=== PATIENT | female | born 1990 | race Caucasian/White ===

== ENCOUNTER 2018-12-16 22:38 | Emergency (ER) | payer BC, MEDICAID ==
[2018-12-16] MEDS ORDERED: ACETAMINOPHEN 500 MG TAB PO ONE (22:53)
[2018-12-16] MEDS ORDERED: IBUPROFEN 800 MG TAB PO ONE (22:53)
[2018-12-16] MEDS ORDERED: NS 2,000 ML IV ONE (22:54)
--- NOTE | 2018-12-16 22:57 | EDPHY ---
H & P Stated Complaint: cough, bodyaches, SOB, abd pain, nausea, diarrhea for several days - Personal History LMP (Females 10-55): Extended Cycle BCP/Inj Current Tetanus/Diphtheria Vaccine: Yes Current Tetanus Diphtheria and Acellular Pertussis (TDAP): Yes - Medical/Surgical History Hx Asthma: No Hx Chronic Respiratory Disease: No Hx Diabetes: No Hx Cardiac Disease: No Hx Renal Disease: No Hx Cirrhosis: No Hx Alcoholism: No Hx HIV/AIDS: No Hx Splenectomy or Spleen Trauma: No Other PMH: bipolar, anxiety, anemia - Social History Smoking Status: Never smoked Time Seen by Provider: 12/16/18 22:48 HPI/ROS: CHIEF COMPLAINT: Flu-like symptoms, diarrhea HISTORY OF PRESENT ILLNESS: 28-year-old immunocompetent female with no seasonal influenza vaccination arrives via private vehicle complaining of 5 days loose stool and abdominal cramping with development today myalgia, fever, nonproductive cough, dyspnea. No nuchal rigidity. No urinary abnormality. No headache. No international travel. No rash. REVIEW OF SYSTEMS: 10 systems reviewed and negative with the exception of the elements mentioned in the history of present illness PAST MEDICAL & SURGICAL HISTORY: No influenza vaccination SOCIAL HISTORY: Nonsmoker PHYSICAL EXAM (Prior to examination, patient consented to physical exam, hands were washed and my usual and customary physical exam procedures followed) 1) GENERAL: Well-developed, well-nourished, alert and oriented. Appears to be in no acute distress. 2) HEAD: Normocephalic, atraumatic 3) HEENT: Pupils equal, round, reactive to light bilaterally. Sclera anicteric. Nasopharynx, oropharynx, clear, no lesions. Moist Mucous membranes. Ears bilaterally with normal tympanic membranes. No evidence of otitis media otitis externa 4) NECK: Full range of motion, no meningeal signs. 5) LUNGS: questionable bibasilar rales auscultated, no wheezes, no rhonchi, no retractions. 6) HEART: Regular rate and rhythm, no murmur, no heave, no gallop. 7) ABDOMEN: No guarding, no rebound, no focal tenderness, negative McBurney's, negative Vogel's, negative Rovsing's, negative peritoneal sign, I am unable to elicit any abdominal pain on exam 8) MUSCULOSKELETAL: Moving all extremities, no focal areas of tenderness, no obvious trauma. No peripheral edema or discoloration. 9) BACK: No CVA tenderness, no midline vertebral tenderness, no fluctuance, no step-off, no obvious trauma, no visual or palpable abnormality. 10) SKIN: No rash, no petechiae. 11) Psychiatric: Patient is oriented X 3, there is no agitation. DIFFERENTIAL DIAGNOSIS: In no particular order including but not limited to viral syndrome, influenza, acute appendicitis, acute cholecystitis (Regulo Salazar) Constitutional: Initial Vital Signs Temperature (C) 39.1 C H 12/16/18 22:42 Heart Rate 121 H 12/16/18 22:42 Respiratory Rate 20 12/16/18 22:42 Blood Pressure 115/78 12/16/18 22:42 O2 Sat (%) 98 12/16/18 22:42 O2 Delivery Mode Room Air Allergies/Adverse Reactions: amoxicillin Allergy (Verified 12/16/18 22:40) Sulfa (Sulfonamide Antibiotics) Allergy (Verified 12/16/18 22:40) Home Medications: Medication Instructions Recorded Camrese Lo Tablet 12/16/18 Gabapentin 12/16/18 [place] Carbonate 12/16/18 Propranolol Sr 12/16/18 Xanax 12/16/18 Medical Decision Making - Diagnostics Imaging Results: Imaging Impressions Chest X-Ray 12/16/18 22:54 Impression: Excellent inspiration. No pneumonia. Images reviewed myself (Regulo Salazar) ED Course/Re-evaluation: 10:56 p.m.: Will obtain diagnostic studies including influenza, administer IV fluids, Tylenol, Motrin. Care of patient under supervision of secondary supervising physician Dr Abbott with whom I discussed case. 12:14 a.m.: Re-evaluation. Patient has received Tylenol, Motrin, IV fluids, feeling improvement, appears improved, smiling. Discussed her laboratory studies which include negative influenza testing. Urinalysis negative. Re- examined her abdomen which remained soft no guarding no rebound, no McBurney's point pain, negative Vogel sign. I think that acute surgical abdominal pathology is less than likely this patient at this time. I Do not think that imaging studies care at this time. Addition the patient has excellent range of motion of the neck. Doubt meningitis. (Regulo Salazar) PHYSICIAN DOCUMENTATION: The patient was evaluated and managed by the Physician Stereoplotter Operator. My co- signature indicates that I have reviewed this chart and I agree with the findings and plan of care as documented. I am the secondary supervising physician. (Viktoria Abbott) - Data Points Laboratory Results: Laboratory Results 12/16/18 22:56 12/16/18 22:56 12/16/18 12/16/18 12/16/18 23:59 22:56 22:56 WBC RBC Hgb Hct MCV MCH MCHC RDW Plt Count MPV Neut % (Auto) Lymph % (Auto) Trigg % (Auto) Eos % (Auto) Baso % (Auto) Nucleat RBC Rel Count Absolute Neuts (auto) Absolute Lymphs (auto) Absolute Monos (auto) Absolute Eos (auto) Absolute Basos (auto) Absolute Nucleated RBC Immature Gran % Immature Gran # RBC/WBC/PLT Morphology Platelet Estimate VBG Lactic Acid 0.8 mmol/L mmol/L (0.7-2.1) Sodium Potassium Chloride Carbon Dioxide Anion Gap BUN Creatinine Estimated GFR Glucose Calcium Total Bilirubin Conjugated Bilirubin Unconjugated Bilirubin AST ALT Alkaline Phosphatase Total Protein Albumin Lipase Beta HCG, Qual Urine Color YELLOW Urine Appearance HAZY Urine pH 6.0 (5.0-7.5) Ur Specific [place] 1.010 (1.002-1.030) Urine Protein 1+ H (NEGATIVE) Urine Ketones NEGATIVE (NEGATIVE) Urine Blood NEGATIVE (NEGATIVE) Urine Nitrate NEGATIVE (NEGATIVE) Urine Bilirubin NEGATIVE (NEGATIVE) Urine Urobilinogen NEGATIVE EU EU (0.2-1.0) Ur Leukocyte Esterase NEGATIVE (NEGATIVE) Urine RBC 1-3 /hpf /hpf (0-3) Urine WBC 1-3 /hpf /hpf (0-3) Ur Epithelial Cells TRACE /lpf /lpf (NONE-1+) Urine Mucus TRACE /lpf /lpf (NONE-1+) Urine Glucose NEGATIVE (NEGATIVE) Nasal Influenza A PCR NEGATIVE FOR FLU A (NEGATIVE) Nasal Influenza B PCR NEGATIVE FOR FLU B (NEGATIVE) 12/16/18 12/16/18 12/16/18 22:56 22:56 22:56 WBC 5.68 10^3/uL 10^3/uL (3.80-9.50) RBC 4.48 10^6/uL 10^6/uL (4.18-5.33) Hgb 13.2 g/dL g/dL (12.6-16.3) Hct 39.7 % % (38.0-47.0) MCV 88.6 fL fL (81.5-99.8) MCH 29.5 pg pg (27.9-34.1) MCHC 33.2 g/dL g/dL (32.4-36.7) RDW 12.3 % % (11.5-15.2) Plt Count 314 10^3/uL 10^3/uL (150-400) MPV 9.9 fL fL (8.7-11.7) Neut % (Auto) 80.9 % H % (39.3-74.2) Lymph % (Auto) 7.0 % L % (15.0-45.0) Trigg % (Auto) 9.5 % % (4.5-13.0) Eos % (Auto) 1.4 % % (0.6-7.6) Baso % (Auto) 0.7 % % (0.3-1.7) Nucleat RBC Rel Count 0.0 % % (0.0-0.2) Absolute Neuts (auto) 4.60 10^3/uL 10^3/uL (1.70-6.50) Absolute Lymphs (auto) 0.40 10^3/uL L 10^3/uL (1.00-3.00) Absolute Monos (auto) 0.54 10^3/uL 10^3/uL (0.30-0.80) Absolute Eos (auto) 0.08 10^3/uL 10^3/uL (0.03-0.40) Absolute Basos (auto) 0.04 10^3/uL 10^3/uL (0.02-0.10) Absolute Nucleated RBC 0.00 10^3/uL 10^3/uL (0-0.01) Immature Gran % 0.5 % % (0.0-1.1) Immature Gran # 0.03 10^3/uL 10^3/uL (0.00-0.10) RBC/WBC/PLT Morphology TNP Platelet Estimate TNP VBG Lactic Acid Sodium 132 mEq/L L mEq/L (135-145) Potassium 3.8 mEq/L mEq/L (3.5-5.2) Chloride 108 mEq/L mEq/L (97-110) Carbon Dioxide 18 mEq/l L mEq/l (22-31) Anion Gap 6 mEq/L mEq/L (6-14) BUN 10 mg/dL mg/dL (7-23) Creatinine 0.8 mg/dL mg/dL (0.6-1.0) Estimated GFR > 60 Glucose 125 mg/dL H mg/dL (70-100) Calcium 9.3 mg/dL mg/dL (8.5-10.4) Total Bilirubin 0.5 mg/dL mg/dL (0.1-1.4) Conjugated Bilirubin 0.3 mg/dL mg/dL (0.0-0.5) Unconjugated Bilirubin 0.2 mg/dL mg/dL (0.0-1.1) AST 19 IU/L IU/L (14-46) ALT 22 IU/L IU/L (9-52) Alkaline Phosphatase 51 IU/L IU/L (38-126) Total Protein 6.8 g/dL g/dL (6.3-8.2) Albumin 4.0 g/dL g/dL (3.5-5.0) Lipase 74 IU/L IU/L (23-300) Beta HCG, Qual NEGATIVE Urine Color Urine Appearance Urine pH Ur Specific [place] Urine Protein Urine Ketones Urine Blood Urine Nitrate Urine Bilirubin Urine Urobilinogen Ur Leukocyte Esterase Urine RBC Urine WBC Ur Epithelial Cells Urine Mucus Urine Glucose Nasal Influenza A PCR Nasal Influenza B PCR Medications Given: Discontinued Medications Acetaminophen (Tylenol) 1,000 mg PO EDNOW ONE Stop: 12/16/18 22:54 Last Admin: 12/16/18 23:06 Dose: 1,000 mg Sodium Chloride (Ns) 2,000 mls @ 0 mls/hr IV ONCE ONE PRN Reason: Wide Open Stop: 12/16/18 22:55 Last Admin: 12/16/18 23:12 Dose: 2,000 mls Ibuprofen (Motrin) 800 mg PO EDNOW ONE Stop: 12/16/18 22:54 Last Admin: 12/16/18 23:06 Dose: 800 mg Departure - Departure Disposition: Home, Routine, Self-Care Clinical Impression: Viral syndrome Condition: Good Instructions: Viral Syndrome (ED) Additional Instructions: . Return to the emergency department immediately for change in breathing habits , change in voice, change in swallowing habits, change in mental status, or any other symptoms that concern you. Adult Pain & Fever Control: We recommend Acetaminophen (Tylenol) and Ibuprofen (Motrin,Advil) for pain and fever control. When fever is high or pain severe, both drugs can be used at the same time, but at different intervals. Please note the time differences. Your dose is: Acetaminophen [1000]mg every 6 hours Ibuprofen [800]mg every 6 hours with food. Note: do not take Acetaminophen with Hydrocodone (Vicodin, Lortab) or Oycodone (Percocet). These medications also contain Acetaminophen. No more than 3000mg of Acetaminophen should be taken in 24 hours (for an adult). Referrals: Luh Campbell MD [Medical Doctor] - 2-3 days, call for appt. Stand Alone Forms: Work Excuse
[2018-12-16 23:10] LABS: PLATELET COUNT 314 10^3/uL (150-400)
[2018-12-16 23:37] VITALS: BP 119/72
== END 2018-12-17 00:24 | disposition home or self-care (01) ==
DX: B34.9 Viral infection, unspecified (principal)